=== PATIENT | female | born 1975 | race Asian ===

== ENCOUNTER 2018-06-07 22:27 | Emergency (ER) | payer OTHER ==
[~2018-06-07] VITALS: Ht 165.1 cm; Wt 54.4 kg
[2018-06-07 22:30] VITALS: BP 134/89; Ht 165.1 cm; Wt 54.4 kg
== END 2018-06-07 23:19 | disposition home or self-care (01) ==
LOC: ED 22:27
DX: S93.401A Sprain of unspecified ligament of right ankle, initial encounter (principal); Z88.9 Allergy status to unspecified drugs, medicaments and biological substances; X58.XXXA Exposure to other specified factors, initial encounter; Y93.21 Activity, ice skating; Y92.89 Other specified places as the place of occurrence of the external cause; Y99.8 Other external cause status